=== PATIENT | female | born 1985 ===

== ENCOUNTER 2016-08-25 05:54 | Observation (INO) | payer MEDICAID ==
[~2016-08-25] VITALS: Ht 167.6 cm; Wt 88.5 kg
[2016-08-25] VITALS (10 sets, daily range): BP systolic 99–122; BP diastolic 54–84
[~2016-08-25 05:54] MED LIST: DERMOPLAST 60ML BOTTLE TOP ONE; METHYLERGONOVINE MALEATE 0.2 MG/ML AMP IM ONE; OXYTOCIN 10UNIT/ML 1ML VIAL ONE; PHISODERM TOP SOLN 240ML BTL TOP ONE; WITCH HAZEL-GLYCERIN PAD TOP ONE
[2016-08-25] MEDS ORDERED: LIDOCAINE 2%HCL (LOCAL ANESTH.) INJ 20ML MDV ONE (06:18)
[2016-08-25] MEDS ORDERED: LACT. RINGERS/OXYTOCIN 20UNITS 1,000 ML IV SCH (06:21)
[2016-08-25] MEDS: LACTATED RINGER'S 1,000 ML IV SCH ×2 (06:21→14:21)
[2016-08-25] MEDS ORDERED: LIDOCAINE 2%HCL (LOCAL ANESTH.) INJ 20ML MDV IJ PRN (06:30)
[2016-08-25] MEDS ORDERED: PHISODERM TOP SOLN 240ML BTL TOP PRN (06:30)
[2016-08-25] MEDS ORDERED: METHYLERGONOVINE MALEATE 0.2 MG/ML AMP IM PRN (06:30)
[2016-08-25] MEDS ORDERED: DERMOPLAST 60ML BOTTLE TOP PRN (06:30)
[2016-08-25] MEDS ORDERED: WITCH HAZEL-GLYCERIN PAD TOP PRN (06:30)
[2016-08-25] MEDS ORDERED: OXYTOCIN 10UNIT/ML 1ML VIAL IM ONE (06:30)
[2016-08-25] MEDS ORDERED: IBUPROFEN 600 MG TAB PO ONE (06:31)
[2016-08-25] MEDS ORDERED: LACT. RINGERS/OXYTOCIN 20UNITS 500 ML IV ONE (06:41)
[2016-08-25 07:45] LABS: Basophils # (auto) 0 uL; CONDITION Y; Eosinophils # (auto) 0 uL; Eosinophils % (auto) 0.1 % (0.0-7.0); Hematocrit 31.1 % (36.0-46.0); Hemoglobin 10.9 g/dL (12.2-16.2); Lymphocytes # (auto) 0.4 uL; Lymphocytes % (auto) 5.8 % (10.0-50.0); Mean Corpuscular Hemoglobin 33.5 pg (28.0-32.0); Mean Corpuscular Volume 95.9 fL (80.0-100.0); Monocytes # (auto) 0.4 uL; Neutrophils # (auto) 6.8 uL; Neutrophils % (auto) 89.1 % (37.0-80.0); Platelet Count (auto) 145 10^3/uL (140-450); Red Cell Distribution Width 14.1 % (11.6-16.0); White Blood Cell 7.6 10^3/uL (4.4-10.8)
[2016-08-25 07:57] LABS: Albumin 2.5 g/dL (3.4-5.0); BUN/Creatinine Ratio 18.2; Calcium 8.4 mg/dL (8.5-10.1); Potassium 3.7 mmol/L (3.5-5.1)
[2016-08-25 07:59] LABS: Bilirubin, Total 0.4 mg/dL (0.2-1.0); Total Protein 5.9 g/dL (6.4-8.2)
[2016-08-25 08:00] LABS: INR 0.98 (0.9-1.15); Partial Thromboplastin Time 25.5 sec (22.64-33.71); Prothrombin Time 10.7 sec (9.37-12.3)
[2016-08-25] MEDS: IBUPROFEN 600 MG TAB PO PRN ×2 (14:56→21:55)
[2016-08-26] MEDS ORDERED: TETANUS-DIPTH-ACEL PERTUSSIS 0.5ML SYRG IM ONE
[2016-08-26 04:14] VITALS: BP 97/57
[2016-08-26 08:00] VITALS: BP 105/63
[2016-08-26] MEDS: IBUPROFEN 600 MG TAB PO PRN (08:05)
== END 2016-08-26 11:40 | disposition home or self-care (01) | DRG 566 ==
LOC: LDRP 05:54
PROVIDERS: ADMIT Obstetrics & Gynecology; ATTEND Obstetrics & Gynecology
DX: O62.9 Abnormality of forces of labor, unspecified (principal); Z3A.38 38 weeks gestation of pregnancy
CPT/HCPCS: 36415; 80053; 80307; 85025; 85610; 85730; 86850; 86900; 86901; 90471; 90715; 96360; 96361; G0378; J2590; 59414; 90472; 96366; 96372